=== PATIENT | female | born 1935 | race Caucasian/White ===

== ENCOUNTER → 2023-09-11 07:50 | Outpatient (CLI) | payer MEDICARE, OTHER, SELFPAY | LOC: LAB 07:58 | PROVIDERS: Family Provider Family Medicine; Referring Provider Ophthalmology; Visit Provider Ophthalmology | DX: H04.001 Unspecified dacryoadenitis, right lacrimal gland (principal) | CPT/HCPCS: 87070; 87077; 87147; 87186; 87205 ==

== ENCOUNTER → 2023-10-07 10:59 | Outpatient (ROUT) | payer MEDICARE, OTHER, SELFPAY | PROVIDERS: Family Provider Family Medicine; Visit Provider Ophthalmology | DX: H04.131 Lacrimal cyst, right lacrimal gland (principal) | CPT/HCPCS: 87070; 87147 ==